=== PATIENT | female | born 1965 | race Caucasian/White ===

== ENCOUNTER 2016-11-05 03:36 | Emergency (ER) | payer MEDICAID ==
[~2016-11-05] VITALS: Ht 167.6 cm; Wt 95.0 kg
[2016-11-05] MEDS ORDERED: ACETAMINOPHEN 325MG TABLET PO ONE (06:45)
[2016-11-05 08:31] VITALS: BP 131/72
== END 2016-11-05 08:45 | disposition home or self-care (01) ==
LOC: ER 03:41
DX: S16.1XXA Strain of muscle, fascia and tendon at neck level, initial encounter (principal); Z98.890 Other specified postprocedural states; V43.62XA Car passenger injured in collision with other type car in traffic accident, initial encounter; Y93.89 Activity, other specified; Y92.488 Other paved roadways as the place of occurrence of the external cause
CPT/HCPCS: 72125; 99284

== ENCOUNTER 2024-07-26 06:57 | Emergency (ER) | payer MEDICAID ==
[~2024-07-26] VITALS: Ht 162.6 cm; Wt 91.0 kg
[2024-07-26 06:59] VITALS: O2SAT 99
[2024-07-26] MEDS: MORPHINE SULFATE 4 MG/ML INJ (FOR IV/IM USE) IV STA (07:57)
[2024-07-26] MEDS: ONDANSETRON HCL 4MG/2ML INJ IV STA (08:21)
[2024-07-26 08:41] LABS: CHLORIDE 108 mEq/L (98-107); POTASSIUM 3.8 mEq/L (3.5-5.1); SODIUM 142 mEq/L (136-145)
[2024-07-26 08:43] LABS: CALCIUM 8.5 mg/dL (8.7-10.4); CARBON DIOXIDE 29 mEq/L (21-32)
[2024-07-26 08:44] LABS: BASOPHILS % 0.5 % (0.0-2.0); EOSINOPHILS % 1.5 % (0.0-5.0); HEMATOCRIT. 38.6 % (36.0-48.0); HEMOGLOBIN. 12.7 g/dL (12.0-16.0); LYMPHOCYTES % 11.6 % (20.0-50.0); MEAN CORPUSCULAR HEMOGLOBIN 28.5 pg (28.0-32.0); MEAN CORPUSCULAR HGB CONC 32.9 g/dL (31.0-37.0); MEAN CORPUSCULAR VOLUME 86.8 fL (81.0-99.0); MEAN PLATELET VOLUME 8.2 fl (7.4-10.4); MONOCYTES % 8.6 % (2.0-8.0); NEUTROPHILS % 77.8 % (40.0-76.0); PLATELET 290 x1000/uL (130-400); RED BLOOD CELL COUNT 4.44 mill/uL (4.2-5.4); WHITE BLOOD COUNT 6.9 x1000/uL (4.5-11.0)
[2024-07-26 08:47] LABS: CREATININE 0.8 mg/dL (0.6-1.0)
[2024-07-26 08:48] LABS: GLUCOSE 94 mg/dL (70-105); UREA NITROGEN BLOOD 14 mg/dL (9-23)
[2024-07-26 08:50] LABS: ALANINE AMINOTRANSFERASE 22 IU/L (10-49); ALBUMIN 3.5 g/dL (3.2-4.8); ASPARTATE AMINOTRANSFERASE 13 IU/L (<34); BILIRUBIN DIRECT 0.2 mg/dL (<=3.0); BILIRUBIN TOTAL 0.5 mg/dL (0.1-1.0); PROTEIN TOTAL 5.6 g/dL (6.0-8.3)
[2024-07-26 08:55] LABS: INR 0.9; PROTHROMBIN TIME 10.1 sec (9.6-11.0)
[2024-07-26] MEDS ORDERED: METRONIDAZOLE 500 MG PREMIX 100 ML IV NR (10:30)
[2024-07-26] MEDS ORDERED: CIPR500T5 MT (12:25)
[2024-07-26] MEDS ORDERED: METR375C2 MT (12:25)
[2024-07-26] MEDS ORDERED: ACET-2708 MT (12:25)
[2024-07-26] MEDS: PIPERACILLIN/TAZO 3.375G/50ML 50 ML IV SCH (12:49)
[2024-07-26 13:43] VITALS: BP 122/70; PULSE 72; RESP 16; TEMP 37.2; O2SAT 100
[2024-07-26] MEDS ORDERED: PIPERACILLIN/TAZO 3.375G/50ML 50 ML IV SCH (15:00)
== END 2024-07-26 13:47 | disposition home or self-care (01) ==
LOC: ER 07:14
DX: K57.92 Diverticulitis of intestine, part unspecified, without perforation or abscess without bleeding (principal); K42.9 Umbilical hernia without obstruction or gangrene; K21.9 Gastro-esophageal reflux disease without esophagitis; M19.90 Unspecified osteoarthritis, unspecified site; M10.9 Gout, unspecified; Z79.899 Other long term (current) drug therapy
CPT/HCPCS: 99285; 74177; 96365; 96375; 80076; 80048; 83605; 83690; 85025; 85610; 36415; J2543; J2270; J2405; J3490